=== PATIENT | female | born 1960 | race Caucasian/White ===

== ENCOUNTER → 2024-07-16 13:11 | Outpatient (REF) | payer OTHER, SELFPAY | LOC: RAD 13:11 | PROVIDERS: ATTENDING PHYSICIAN Nurse Practitioner | DX: R05.3 Chronic cough (principal) | CPT/HCPCS: 71046 ==

== ENCOUNTER 2025-01-18 14:42 | Emergency (ER) | payer OTHER, SELFPAY ==
[2025-01-18 14:43] VITALS: BP 115/85
[2025-01-18 15:15] LABS: Hematocrit 39.8 % (37.0-47.0); Hemoglobin 13.8 g/dL (12.0-16.0); Mean Corp Hgb Conc. 34.7 g/dL (33.0-37.0); Mean Corpuscular Volume 94.5 fL (81.0-99.0); Nucleated Red Blood Cells % 0 %; Platelet Count 276 10^3/uL (130-400); Red Cell Dist. Width 11.3 % (11.5-14.5)
[2025-01-18 15:30] LABS: COVID-19 Antigen Negative (Negative)
[2025-01-18 15:38] LABS: ALT (SGPT) 14 U/L (0-35); AST (SGOT) 22 U/L (14-36); Albumin 4.9 g/dl (3.5-5.0); Alkaline Phosphatase 75 U/L (38-126); Blood Urea Nitrogen 14 mg/dl (7-17); Calcium 9.6 mg/dl (8.4-10.2); Carbon Dioxide 27 mmol/L (22-30); Chloride 103 mmol/L (98-107); Glucose 101 mg/dl (70-99); Potassium 4.2 mmol/L (3.5-5.1); Sodium 124 mmol/L (135-145); Total Protein 7.9 g/dl (6.3-8.2); eGFR > 60.00
--- NOTE | 2025-01-18 18:44 | ED.GENMED ---
History of Present Illness
General
Chief Complaint: Headache
Source: patient
Exam Limitations: none
Time Seen by Provider: 01/18/25 18:20
History of Present Illness
History of Present Illness:
See MDM
Past History
Past History
ED Past Medical History: Psychiatric, Other and Other
ED Past Surgical History: Gynecological (Endometrial ablation with cessation of menses)
Social History
Tobacco: Non-smoker
Alcohol: None
Personal:
Living: with family
Employment: Employed
Family History
Family History: Negative Hypertension or CAD
Phy Exam
Physical Exam
Physical Exam:
See MDM
Course
Orders/Labs/Results
Orders:
Orders
01/18/25 14:54
C-Reactive Protein Urgent
Comment: ADD ON
COVID-19 Antigen Urgent
Source: Nasal Swab
Complete Blood Count/With Diff Urgent
Comprehensive Metabolic Panel Urgent
Erythrocyte Sed Rate Urgent
Comment: ADD ON
Influenza A+B Rapid Molecular Urgent
COMPA Source: Nasal Swab
Specimen Description:
01/18/25 18:39
Add On- LAB Urgent
Tests Added?: ESR, CRP
CT Head W/o Iv Contrast Urgent
Comment:
Reason For Exam: left side headache
01/18/25 18:42
Dexamethasone Pf [Decadron] 10 mg PO NOW STA
Ketorolac [Toradol] 30 mg IM NOW STA
Abnormal Lab Results
01/18/25
14:54
MCH 32.8 H pg
(27.0-31.0)
RDW 11.3 L %
(11.5-14.5)
ESR 27 H mm/hour
(0-20)
Sodium 124 L mmol/L
(135-145)
Glucose 101 H mg/dl
(70-99)
C-Reactive Protein 19.60 H mg/L
(0.0-10.00)
01/18/25 14:54
01/18/25 14:54
Vital Signs
Initial and Last Documented VS:
Initial Vital Signs
Temp Pulse Resp BP Pulse Ox
97.9 F 66 18 115/85 96
01/18/25 14:43 01/18/25 14:43 01/18/25 14:43 01/18/25 14:43 01/18/25 14:43
Last Documented Vital Signs
Temp Pulse Resp BP Pulse Ox
97.9 F 66 18 115/85 96
01/18/25 14:43 01/18/25 14:43 01/18/25 14:43 01/18/25 14:43 01/18/25 18:46
MDM/Problems Addressed
Differential Diagnosis Includes:
Note:
CHIEF COMPLAINT(S)
Severe headache and blurred vision in the left eye.
HISTORY OF PRESENT ILLNESS
The patient is a 64-year-old female presenting with a chief complaint of severe migraine headaches and blurred vision in the left eye. She reports that these symptoms have been ongoing for about a week. The patient describes the headache as feeling
like 'someone punched me in the eye, but from the back,' and mentions it almost feels bruised in the back of the eye. The associated symptom of blurred vision occurs primarily in the morning and slightly in the early afternoon. No tenderness is
noted when pressure is applied to the temporal artery. The patient had a COVID test upon arrival, which was negative, and she mentions feeling congestion. The patient relates her symptoms to sinus issues and denies any current blurring at the time
of the visit.
Her PCP called requesting ESR. Patient states her vision appears to be back to normal development
PAST MEDICAL AND SURGICAL HISTORY
The patient reported a history of a neck fracture from a fall down stairs.
PHYSICAL EXAM
General: Alert, no acute distress.
Skin: Warm, dry.
Head: Normocephalic, atraumatic. No tenderness to temporal artery palpation
Neck: Appears supple, trachea midline.
Eyes, Ears, Nose, Mouth, and Throat: Oral mucosa moist. No visual field. EOMI
Cardiovascular: No signs of cyanosis
Respiratory: Respirations are non-labored.
Abdomen: Non-distended
Musculoskeletal: No deformities
Neurological: No focal neurological deficit observed.
Psychiatric: Cooperative, appropriate mood and affect.
PLAN
1. Order a CT scan of the head to rule out any intracranial issues and evaluate for sinusitis.
2. Initiate a course of steroids to address sinus congestion and drainage, in lieu of antibiotics unless symptoms persist beyond two weeks, per ENT guidelines.
3. Add blood work as per patient�s primary care provider�s concerns to rule out conditions such as giant cell arteritis.
4. Advise follow-up with an eye doctor for continued blurred vision if symptoms persist.
DIFFERENTIAL DIAGNOSIS
The Differential Diagnosis includes, in no particular order and is not limited to:
1. Migraine headache
2. Sinusitis
3. Giant cell arteritis
4. Cluster headache
5. Acute glaucoma
6. Transient ischemic attack
7. Retinal detachment
8. Temporal arteritis
9. Hypertensive headache
10. Intracranial mass
REVIEW OF SYSTEMS
- Head: Reports severe headache feeling like a bruise from the back of the eye.
- Eyes: Blurry vision on the left side, primarily in the morning; burning and watering described.
- Respiratory: Reports congestion.
PHYSICAL EXAM
- Neurological: No focal neurological deficits observed.
PROBLEM LIST
Acute problems:
1. Severe headache
2. Blurred vision in the left eye
3. Congestion
The provided sections reflect the details as discussed in the patients conversation with the physician, maintaining a clear structure and focusing on the explicitly mentioned issues and plans.
SUMMARY OF ENCOUNTER
The patient, a 64-year-old female, presented to the emergency department with severe headaches and blurred vision in the left eye, thought to be related to sinus congestion. A CT scan of the head was conducted, confirming suspected sinus congestion.
Following administration of a course of steroids, the patient reported feeling much better.
PLAN
A CT scan confirmed the suspected sinus congestion. Steroids were administered for treatment, which resulted in symptomatic improvement. It is recommended that she follows up with her primary care doctor, discussing the very mild elevation of
C-reactive protein (CRP) and erythrocyte sedimentation rate (ESR). Also, a referral to a vascular surgeon for possible consultation in the future was provided to keep on file, although the current assessment leans toward sinus-related etiology over
temporal arteritis. Return precautions were discussed. We also discussed follow-up with her primary care to discuss her low sodium. Patient states she drinks about 8 to 10 glasses of water as she fears dehydration can worsen her seizure disorder.
We discussed that she is probably drinking too much water but should talk to her doctor.
INDEPENDENT REVIEW OF LABS AND INTERPRETATION OF TESTS
My independent review of the patients lab work reveals a very mild elevation in CRP and ESR levels.
MEDICAL DECISION MAKING
-Complexity of Data Reviewed: Chronic conditions affecting care include a history of neck fracture. Differential diagnosis includes:
1. Migraine headache
2. Sinusitis
3. Giant cell arteritis
4. Cluster headache
5. Acute glaucoma
6. Transient ischemic attack
7. Retinal detachment
8. Temporal arteritis
9. Hypertensive headache
10. Intracranial mass
-Data:
Category 1
- My independent interpretation of the CT head confirms suspected sinus congestion.
-Risk:
Consideration of Admission/Observation: Escalation of care including admission/observation was considered given the complexity and risk of the patients presenting complaint, exam findings, and/or their underlying comorbidities. However, ultimately
the patient is deemed safe for outpatient management with close follow-up. Reasoning: Work-up reassuring, does not reveal any acute life/organ-threatening processes, patients symptoms are well controlled upon reevaluation, reexamination is
reassuring, vitals are stable, patient agreeable with discharge, reliable for follow-up.
DIAGNOSIS
1. Sinusitis (ICD-10: J01.90)
2. Mildly elevated inflammatory markers (ICD-10: R79.82)
*Pulse Oximetry
SaO2: 96
Oxygen Mode of Delivery: Room air
Patient hypoxic: no
*Critical Care Note
Total Time (30-74mins, 75-104mins- exclusive of procedures): Not Applicable
ED Attending Note
-
Portions of this chart may have been created with voice recognition software.� Occasional wrong word or��sound alike� substitutions may have occurred due to the inherent limitations of voice recognition software.
Discharge Plan
Departure
Patient Disposition: Home (Routine Discharge)
Date of Disposition: 01/18/25
Time of Disposition: 19:58
Patient with high blood pressure during this ER visit?: No
Discharge Problem:
Sinusitis
Instructions: Hyponatremia, Sinusitis in adults - ED (DC)
Prescriptions:
New
prednisone 50 mg Tablet
50 mg PO DAILY Qty: 5 0RF
No Action
sertraline 100 MG tablet
100 mg PO DAILY
lorazepam 0.5 MG tablet
0.5 mg PO HS
Referrals:
Ganesh Lozano III, MD [Active, Vascular Surgery]
Andry Cesar MD [Family Provider, Internal Medicine]
Activity Restrictions/Additional Instructions:
Please return for any worsening symptoms.
You may return at any time if you have further concerns.
Please follow up with your doctor at the first available appointment, preferably this week.
If symptoms persist, please follow-up with the vascular surgeon.
Thank you for choosing [facility].
Interventions
Interventions:
*Risk Screen - Suicide Last Done: 01/18/25 14:43
*General Assessment Last Done: 01/18/25 14:43
*Neglect/Abuse Screening Last Done: 01/18/25 19:16
*ED- Fall Risk Assessment Last Done: 01/18/25 19:15
*ED COVID-19 Vaccine History Last Done: 01/18/25 19:15
*ED Influenza Vaccine History Last Done: 01/18/25 19:15
ED- Neurological Assessment Last Done: 01/18/25 19:16
Discharge Date and Time
Print Language: STATELESS
[2025-01-18] MEDS: DECADRON 10 MG PO (19:00)
[2025-01-18] MEDS: TORADOL 30 MG IM (19:00)
[2025-01-18 19:17] VITALS: BMI 19.3
[2025-01-18 19:41] LABS: C-Reactive Protein 19.60 mg/L (0.0-10.00)
== END 2025-01-18 20:12 | disposition home or self-care (01) ==
LOC: EMR 14:42
PROVIDERS: Emergency Medicine; EMERGENCY PHYSICIAN Student in an Organized Health Care Education/Training Program; FAMILY PHYSICIAN Internal Medicine
DX: J32.9 Chronic sinusitis, unspecified (principal); G40.909 Epilepsy, unspecified, not intractable, without status epilepticus
CPT/HCPCS: 99284; 96372; 70450; 80053; 85025; 85652; 86140; 87502; 87811